=== PATIENT | male | born 1945 | race Caucasian/White ===

== ENCOUNTER 2021-02-06 16:09 | Inpatient (IN) | payer MEDICARE, OTHER ==
[2021-02-06 16:40] LABS: #Basophils 0.1 10x3/uL (0.0-0.2); #Eosinphils 0.1 10x3/uL (0.0-0.5); #Monocytes 1.1 10x3/uL (0.0-1.1); #Neutrophils 8.6 10x3/uL (1.5-8.4); %Basophils 0.7 % (0.0-2.0); %Eosinophils 0.7 % (0.0-6.0); %Lymphocytes 8.2 % (18.0-47.0); %Neutrophils 79.8 % (40.0-75.0); Hemoglobin 17.4 g/dL (13.5-17.5); Mean Corpuscular HGB CONC 34.9 g/dL (32.0-36.0); Mean Corpuscular Hemoglobin 30.5 pg (27.0-33.0); Mean Corpuscular Volume 87.4 fl (81.2-95.1); Mean Platelet Volume 8.9 fl (7.4-10.4); Platelet Count 249 10x3/uL (150-450); RBC Distribution Width 13.3 % (11.5-14.5); Red Blood Cell (RBC) Count 5.71 10x6/uL (4.32-5.72); White Blood Cell (WBC) Count 10.7 10x3/uL (3.5-10.5)
[2021-02-06 17:29] LABS: ALT (SGPT) 103 U/L (8-55); AST (SGOT) 67 U/L (5-34); Albumin 4.5 g/dL (3.4-4.8); Alkaline Phosphatase 228 U/L (40-110); Anion Gap 12 mmol/L (10-20); BUN (Urea Nitrogen) 17 mg/dL (8.4-25.7); Bilirubin, Total 0.5 mg/dL (0.2-1.2); Calc. Creatinine Clearance 0 mL/min (70-130); Calcium 10.1 mg/dL (7.8-10.44); Carbon Dioxide 30 mmol/L (23-31); Chloride 99 mmol/L (98-107); Globulin 2.3 g/dL (2.4-3.5); Glucose 112 mg/dL (83-110); Lipase 98 U/L (8-78); Potassium 4.4 mmol/L (3.5-5.1); Protein, Total 6.8 g/dL (5.8-8.1); Sodium 137 mmol/L (136-145)
[2021-02-06] MEDS ORDERED: Ondansetron PF 4 MG/2 ML Vial ONE (18:45)
[2021-02-06] MEDS ORDERED: Morphine 4 MG/ML VIAL ONE (18:45)
[2021-02-06 19:38] LABS: Bilirubin Neg (Negative); Blood, Urine 25 (Negative); Clarity Clear (Clear); Glucose, Urine (Dipstick) Normal (Negative); Ketone, Urine Negative (Negative); Leukocyte Negative (Negative); Nitrite Negative (Negative); Protein, Urine (Dipstick) Negative (Neg-Trace); Specific Gravity, Urine 1.005 (1.002-1.036); Urobilinogen Normal mg/dL (Less than 2)
[2021-02-06 19:48] LABS: Bacteria/HPF Rare-Few HPF (None Seen); RBC/HPF 0-3 HPF (0-3); Squamous Epithelial None Seen HPF (0-3); WBC/HPF None Seen HPF (0-3)
[2021-02-06] MEDS ORDERED: HYDROcodone/Acetaminophen 5/325 mg Tablet PO PRN (20:03)
[2021-02-06] MEDS ORDERED: Calcium Carbonate 500 MG ChewTAB PO PRN (20:03)
[2021-02-06] MEDS ORDERED: Acetaminophen 325 MG TAB PO PRN (20:03)
[2021-02-06] MEDS ORDERED: Senokot S 8.6-50 MG TAB PO PRN (20:03)
[2021-02-06] MEDS ORDERED: Ondansetron PF 4 MG/2 ML Vial IVP PRN (20:03)
[2021-02-06] MEDS ORDERED: Guaifenesin DM 100-10/5 ML UDCUP PO PRN (20:03)
[2021-02-06] MEDS ORDERED: methylPREDNISolone Sod Succ/PF 125 MG/2 ML VIAL IVP SCH (20:15)
[2021-02-06] MEDS ORDERED: Sodium Chloride 0.9% 1,000 ML IV SCH (20:15)
[2021-02-06] MEDS: Pantoprazole 40 MG VIAL IVP SCH (22:13)
[2021-02-06] MEDS: Docusate 100 MG CAP PO SCH (22:13)
[2021-02-06] MEDS: Nicotine 21 MG PATCH TD SCH (22:14)
[2021-02-06] MEDS: Dronabinol 2.5 MG CAP PO SCH (22:14)
[2021-02-06 23:41] VITALS: BMI 25.0
[2021-02-06] MEDS ORDERED: Morphine 2 MG/ML VIAL SLOW IVP PRN (23:59)
[2021-02-07 04:06] LABS: #Monocytes 0.1 10x3/uL (0.0-1.1); #Neutrophils 7.1 10x3/uL (1.5-8.4); %Basophils 0.3 % (0.0-2.0); %Eosinophils 0.1 % (0.0-6.0); %Lymphocytes 4.1 % (18.0-47.0); %Monocytes 1.6 % (0.0-10.0); %Neutrophils 93.4 % (40.0-75.0); Hemoglobin 16.1 g/dL (13.5-17.5); Mean Corpuscular HGB CONC 34.3 g/dL (32.0-36.0); Mean Corpuscular Hemoglobin 30.7 pg (27.0-33.0); Mean Corpuscular Volume 89.5 fl (81.2-95.1); Mean Platelet Volume 9.2 fl (7.4-10.4); Platelet Count 222 10x3/uL (150-450); RBC Distribution Width 13.2 % (11.5-14.5); Red Blood Cell (RBC) Count 5.25 10x6/uL (4.32-5.72); White Blood Cell (WBC) Count 7.6 10x3/uL (3.5-10.5)
[2021-02-07 04:27] LABS: ALT (SGPT) 88 U/L (8-55); AST (SGOT) 56 U/L (5-34); Albumin 3.9 g/dL (3.4-4.8); Alkaline Phosphatase 188 U/L (40-110); Anion Gap 16 mmol/L (10-20); BUN (Urea Nitrogen) 15 mg/dL (8.4-25.7); Bilirubin, Total 0.5 mg/dL (0.2-1.2); Calc. Creatinine Clearance 55 mL/min (70-130); Calcium 9.9 mg/dL (7.8-10.44); Carbon Dioxide 25 mmol/L (23-31); Chloride 104 mmol/L (98-107); Globulin 2.6 g/dL (2.4-3.5); Glucose 143 mg/dL (83-110); Magnesium 2.2 mg/dL (1.6-2.6); Potassium 5.1 mmol/L (3.5-5.1); Protein, Total 6.5 g/dL (5.8-8.1); Sodium 140 mmol/L (136-145)
[2021-02-07 04:35] LABS: SARS-CoV-2 PCR by NAA Not Detected (NotDetected)
[2021-02-07] MEDS: Budesonide 0.5 MG/2 ML NEB NEB SCH ×2 (08:35→19:55)
[2021-02-07] MEDS ORDERED: Promethazine HCl 12.5 MG in Sodium Chloride 0.9% 50 ML IVPB PRN (08:42)
[2021-02-07] MEDS ORDERED: Fentanyl 100 MCG/2 ML VIAL ONE (08:42)
[2021-02-07] MEDS ORDERED: Naloxone HCl 0.4 mg/ml Vial ONE (08:43)
[2021-02-07] MEDS ORDERED: Lidocaine 1% PF 5 ML VIAL ONE (08:43)
[2021-02-07] MEDS ORDERED: Sodium Bicarbonate 2.5 MEQ/5 ML VIAL ONE (08:44)
[2021-02-07] MEDS ORDERED: Midazolam HCl 5 mg/5 ml Vial ONE (08:45)
[2021-02-07] MEDS ORDERED: Enoxaparin Sodium 40 MG/0.4 ML SYRINGE SC SCH (09:00)
[2021-02-07] MEDS: Dronabinol 2.5 MG CAP PO SCH ×2 (10:56→20:26)
[2021-02-07] MEDS: predniSONE 20 MG TAB PO SCH (10:56)
[2021-02-07] MEDS: Docusate 100 MG CAP PO SCH ×2 (10:56→20:25)
[2021-02-07] MEDS: Multivitamin W/ Minerals 1 TAB PO SCH (10:56)
[2021-02-07] MEDS: Pantoprazole 40 MG VIAL IVP SCH ×2 (10:57→20:25)
[2021-02-07] MEDS: HYDROcodone/Acetaminophen 5/325 mg Tablet PO PRN (11:33)
[2021-02-07] MEDS: Nicotine 21 MG PATCH TD SCH (20:24)
[2021-02-07] MEDS: Atorvastatin Calcium 10 MG TAB PO SCH (20:25)
[2021-02-07] MEDS: Enoxaparin Sodium 40 MG/0.4 ML SYRINGE SC SCH (20:26)
[2021-02-07] MEDS: Zolpidem Tartrate 5 MG TAB PO PRN (20:35)
[2021-02-08] MEDS: HYDROcodone/Acetaminophen 5/325 mg Tablet PO PRN (06:19)
[2021-02-08] MEDS: Budesonide 0.5 MG/2 ML NEB NEB SCH ×2 (08:30→19:45)
[2021-02-08] MEDS: Pantoprazole 40 MG VIAL IVP SCH ×2 (08:43→20:43)
[2021-02-08] MEDS: Multivitamin W/ Minerals 1 TAB PO SCH (08:43)
[2021-02-08] MEDS: Docusate 100 MG CAP PO SCH ×2 (08:44→20:42)
[2021-02-08] MEDS: Dronabinol 2.5 MG CAP PO SCH ×2 (08:44→20:42)
[2021-02-08] MEDS: predniSONE 20 MG TAB PO SCH (08:44)
[2021-02-08] MEDS ORDERED: Polyethylene Glycol 3350 17 GM Packet PO SCH (14:15)
[2021-02-08] MEDS: Zolpidem Tartrate 5 MG TAB PO PRN (20:42)
[2021-02-08] MEDS: Atorvastatin Calcium 10 MG TAB PO SCH (20:42)
[2021-02-08] MEDS: Nicotine 21 MG PATCH TD SCH (20:43)
[2021-02-08] MEDS: Enoxaparin Sodium 40 MG/0.4 ML SYRINGE SC SCH (20:43)
[2021-02-09] MEDS: Budesonide 0.5 MG/2 ML NEB NEB SCH ×2 (08:15→21:02)
[2021-02-09] MEDS: Polyethylene Glycol 3350 17 GM Packet PO SCH (09:53)
[2021-02-09] MEDS: predniSONE 20 MG TAB PO SCH (09:55)
[2021-02-09] MEDS: Dronabinol 2.5 MG CAP PO SCH ×2 (09:55→20:44)
[2021-02-09] MEDS: Multivitamin W/ Minerals 1 TAB PO SCH (09:55)
[2021-02-09] MEDS: Pantoprazole 40 MG VIAL IVP SCH ×2 (09:56→20:44)
[2021-02-09] MEDS: Docusate 100 MG CAP PO SCH ×2 (09:56→20:44)
[2021-02-09] MEDS ORDERED: Milk Of Magnesia 30 ML UDCUP PO SCH (13:00)
[2021-02-09] MEDS ORDERED: Preparation H Ointment 28 GM TUBE TOP PRN (18:57)
[2021-02-09] MEDS: Enoxaparin Sodium 40 MG/0.4 ML SYRINGE SC SCH (20:44)
[2021-02-09] MEDS: Nicotine 21 MG PATCH TD SCH (20:44)
[2021-02-09] MEDS: Atorvastatin Calcium 10 MG TAB PO SCH (20:44)
[2021-02-09] MEDS: Zolpidem Tartrate 5 MG TAB PO PRN (20:44)
[2021-02-10] MEDS: HYDROcodone/Acetaminophen 5/325 mg Tablet PO PRN (03:11)
[2021-02-10 04:52] LABS: ALT (SGPT) 135 U/L (8-55); AST (SGOT) 92 U/L (5-34); Albumin 4.1 g/dL (3.4-4.8); Alkaline Phosphatase 251 U/L (40-110); Anion Gap 14 mmol/L (10-20); BUN (Urea Nitrogen) 16 mg/dL (8.4-25.7); Bilirubin, Total 0.6 mg/dL (0.2-1.2); Calc. Creatinine Clearance 60 mL/min (70-130); Calcium 10.1 mg/dL (7.8-10.44); Carbon Dioxide 29 mmol/L (23-31); Chloride 99 mmol/L (98-107); Globulin 2.6 g/dL (2.4-3.5); Glucose 86 mg/dL (83-110); Potassium 4.4 mmol/L (3.5-5.1); Protein, Total 6.7 g/dL (5.8-8.1); Sodium 138 mmol/L (136-145)
[2021-02-10 05:00] LABS: #Basophils 0.1 10x3/uL (0.0-0.2); #Monocytes 1.2 10x3/uL (0.0-1.1); #Neutrophils 9.6 10x3/uL (1.5-8.4); %Basophils 0.4 % (0.0-2.0); %Eosinophils 0.3 % (0.0-6.0); %Lymphocytes 7.5 % (18.0-47.0); %Monocytes 10.4 % (0.0-10.0); %Neutrophils 80.6 % (40.0-75.0); Hemoglobin 15.9 g/dL (13.5-17.5); Mean Corpuscular HGB CONC 33.8 g/dL (32.0-36.0); Mean Corpuscular Hemoglobin 30.1 pg (27.0-33.0); Mean Platelet Volume 9.5 fl (7.4-10.4); Platelet Count 233 10x3/uL (150-450); RBC Distribution Width 13.3 % (11.5-14.5); Red Blood Cell (RBC) Count 5.28 10x6/uL (4.32-5.72); White Blood Cell (WBC) Count 11.9 10x3/uL (3.5-10.5)
[2021-02-10] MEDS: Budesonide 0.5 MG/2 ML NEB NEB SCH ×2 (07:35→21:14)
[2021-02-10] MEDS: Pantoprazole 40 MG VIAL IVP SCH ×2 (08:24→21:13)
[2021-02-10] MEDS: predniSONE 20 MG TAB PO SCH (08:24)
[2021-02-10] MEDS: Dronabinol 2.5 MG CAP PO SCH ×2 (08:25→21:13)
[2021-02-10] MEDS: Multivitamin W/ Minerals 1 TAB PO SCH (08:25)
[2021-02-10] MEDS: Polyethylene Glycol 3350 17 GM Packet PO SCH (08:25)
[2021-02-10] MEDS: Docusate 100 MG CAP PO SCH ×2 (08:25→21:12)
[2021-02-10] MEDS: Zolpidem Tartrate 5 MG TAB PO PRN (21:12)
[2021-02-10] MEDS: Atorvastatin Calcium 10 MG TAB PO SCH (21:12)
[2021-02-10] MEDS: Nicotine 21 MG PATCH TD SCH (21:13)
[2021-02-10] MEDS: Enoxaparin Sodium 40 MG/0.4 ML SYRINGE SC SCH (21:13)
[2021-02-11] MEDS: Budesonide 0.5 MG/2 ML NEB NEB SCH (07:13)
[2021-02-11] MEDS ORDERED: Pantoprazole 40 MG VIAL ONE ×2 (08:45)
[2021-02-11] MEDS: Dronabinol 2.5 MG CAP PO SCH (08:51)
[2021-02-11] MEDS: predniSONE 20 MG TAB PO SCH (08:51)
[2021-02-11] MEDS: Multivitamin W/ Minerals 1 TAB PO SCH (08:51)
[2021-02-11] MEDS: Docusate 100 MG CAP PO SCH (08:51)
[2021-02-11] MEDS: Pantoprazole 40 MG VIAL IVP SCH (08:51)
[2021-02-11] MEDS: Polyethylene Glycol 3350 17 GM Packet PO SCH (08:52)
[2021-02-11 14:36] VITALS: BP 129/70; TEMP 98.4
== END 2021-02-11 14:05 | disposition home or self-care (01) | DRG 436 ==
LOC: CSHERS 16:09 → CSHTELE 20:50 → UNDOADMOB 20:50 → CSHTELE 02-07 19:08 → INTOOBSV 02-07 20:51 → OBSVTOIN 02-07 20:51
PROVIDERS: ADMIT Student in an Organized Health Care Education/Training Program; ATTEND Family Medicine
PROC: 0FB03ZX Excision of Liver, Percutaneous Approach, Diagnostic (ICD-10-PCS; principal; 2021-02-07)
DX: C78.7 Secondary malignant neoplasm of liver and intrahepatic bile duct (principal); C34.02 Malignant neoplasm of left main bronchus; Z20.822 Contact with and (suspected) exposure to COVID-19; E78.5 Hyperlipidemia, unspecified; K21.9 Gastro-esophageal reflux disease without esophagitis; F17.210 Nicotine dependence, cigarettes, uncomplicated; J44.9 Chronic obstructive pulmonary disease, unspecified; I12.9 Hypertensive chronic kidney disease with stage 1 through stage 4 chronic kidney disease, or unspecified chronic kidney disease; N18.31 Chronic kidney disease, stage 3a; R63.0 Anorexia; R74.8 Abnormal levels of other serum enzymes; R91.8 Other nonspecific abnormal finding of lung field; R79.89 Other specified abnormal findings of blood chemistry; R14.0 Abdominal distension (gaseous); Z71.6 Tobacco abuse counseling; Z85.46 Personal history of malignant neoplasm of prostate; K59.00 Constipation, unspecified; Z68.25 Body mass index [BMI] 25.0-25.9, adult; Z88.1 Allergy status to other antibiotic agents; Z79.899 Other long term (current) drug therapy
CPT/HCPCS: 36415; 47000; 71045; 80053; 81003; 81015; 83690; 83735; 83880; 84443; 84484; 85025; 87635; 88184; 88307; 88333; 88334; 88341; 88342; 88360; 93005; 94640; 94760; 96374; 96375; 96376; C9113; G0378; J1650; J2250; J2270; J2310; J2405; J2550; J2930; J3010; J7512; J7620; J7626; Q0167; U0003; U0005